=== PATIENT | female | born 1990 ===

== ENCOUNTER → 2021-12-19 11:32 | Outpatient (BNVA) | payer MEDICAID, SELFPAY | PROVIDERS: PCP Hospitalist; Visit Provider Advanced Practice Midwife ==

== ENCOUNTER 2022-08-19 10:02 | Outpatient (REF) | payer MEDICAID, SELFPAY ==
[2022-08-19 19:04] LABS: CT PCR NOT DETECTED (Not Detect.); NG PCR NOT DETECTED (Not Detect.)
[2022-08-20 09:34] LABS: BV Int Neg Control Negative (Negative); BV Int Pos Control Positive (Positive)
[2022-08-25 20:52] LABS: HPV mRNA E6/E7 rflx Not Detected (Not Detected)
== END 2022-08-19 10:03 | disposition home or self-care (01) ==
LOC: HO.LNP 10:02
PROVIDERS: Visit Provider Advanced Practice Midwife
DX: Z01.419 Encounter for gynecological examination (general) (routine) without abnormal findings (principal); Z11.3 Encounter for screening for infections with a predominantly sexual mode of transmission; Z11.51 Encounter for screening for human papillomavirus (HPV)
CPT/HCPCS: 87480; 87491; 87510; 87591; 87624; 87660; 88142

== ENCOUNTER 2023-06-28 14:36 | Outpatient (REF) | payer MEDICAID, SELFPAY ==
--- NOTE | ~2023-06-28 | US_ITS ---
EXAMINATION: US VENOUS ULTRASOUND WITH DOPPLER LOWER EXTREMITY, BILATERAL CLINICAL INFORMATION: Swelling and edema. COMPARISON: None available. TECHNIQUE: Ultrasound of the deep veins is performed from the bilateral hips to the calf, with compression sonography and color and pulse Doppler assessment. Spectral analysis with color-flow imaging is performed. FINDINGS: RIGHT: There is normal venous compression and respiratory variation and augmented flow. The visualized common femoral vein, superficial femoral vein, profunda femoral vein, popliteal vein, and the trifurcation region shows no evidence of deep venous thrombosis. There is no significant popliteal fossa cyst. LEFT: There is normal venous compression and respiratory variation and augmented flow. The visualized common femoral vein, superficial femoral vein, profunda femoral vein, popliteal vein, and the trifurcation region shows no evidence of deep venous thrombosis. There is no significant popliteal fossa cyst. If the patient's symptoms persist, followup ultrasound in 5 days 7 days might be of value to exclude proximal propagation from a non-visualized calf vein. US/US venous duplex LE BI IMPRESSION: No DVT demonstrated in the bilateral lower extremities.
== END 2023-06-28 14:37 | disposition home or self-care (01) ==
LOC: HO.US 14:36
PROVIDERS: Visit Provider Hospitalist
DX: R22.43 Localized swelling, mass and lump, lower limb, bilateral (principal)
CPT/HCPCS: 93970

== ENCOUNTER 2023-08-26 09:27 | Outpatient (AMB) | payer MEDICAID, SELFPAY ==
--- NOTE | 2023-08-26 09:33 | MHC.OFFVIS ---
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 [facility] staff member Viviana is present for her visit. She reports irregular menstrual cycle. She reports abnormal weight gain ~ about 30 lbs. since last visit. She performs physical therapy exercises. She is interested in having a future and that she did have a boyfriend. No history of blood clot in legs or lungs. She is taking thyroid medication. She is up-to-date with pap smear. Denies vaginal itching and irritation. She was never diagnosed with polycystic syndrome. No excessive hair growth or acne. Denies any lower abdominal pain or pelvic pain. 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 Family History (Updated 08/26/23 @ 11:12 by Feliciano Jacob) Sister ALS (amyotrophic lateral sclerosis) Father ALS (amyotrophic lateral sclerosis) Social History Housing: Assisted Living Facility Housing Other:: hospital unit care one Female Reproductive History Menstrual Total pregnancies: 1 Full term: 1 Number of Living Children: 1 Date of last pap smear: 08/19/22 (neg pap and hpv) Review of Systems Const All systems reviewed & are unremarkable except as noted in HPI and below Reports as per HPI Eyes Reports no additional complaints ENT Reports no additional complaints Card Reports no additional complaints Resp Reports no additional complaints GI Reports no additional complaints Reports as per HPI Musc Reports no additional complaints Skin/Breast Reports as per HPI Neuro Reports no additional complaints Psych Reports no additional complaints Endo Reports no additional complaints Steven/Lymph Reports no additional complaints Aller/Immun Reports no additional complaints Physical Exam Vital Signs: Last Vital Signs BP 120/80 08/26/23 09:37 BMI result Body Mass Index 37.4 Const General: cooperative, healthy appearing, no acute distress, well developed and alert Orientation/consciousness: patient oriented x3 HEENT Head: Yes normal to inspection Eyes General: appearance normal, both eyes and all related structures Neck Neck: Yes normal visual inspection Thyroid: Thyroid normal Chest Chest palpation & inspection: normal inspection of the chest Breast/axilla inspection: normal inspection of the breasts (no puckering, dimpling, peau de orange, retraction, discharge, masses) Breast/axilla palpation: normal palpation of the breasts Resp Effort & Inspection: normal respiratory effort GI Inspection: Yes normal to inspection and Yes obesity Palpation (GI): Soft to palpation and Other GI palpation findings present (large, rounded) Rectal Exam - Female: deferred Other: limited due to body habitus General: Yes bladder normal to palpation External Female Exam: normal external appearance and normal appearance of the urethra Speculum Exam - Vagina: normal appearance of the vagina, normal palpation and normal vaginal discharge Speculum Exam - Cervix: normal appearance of the cervix and normal palpation Bimanual exam- vagina & uterus: normal bimanual exam, normal palpation, uterine size normal, bladder normal to palpation and normal palpation Bimanual Exam- Adnexa, other: normal adnexae and no masses Skin General skin exam: no rashes or lesions noted Neuro General: patient oriented x3 Cognition (Neuro): normal cognition Extrem General: Yes normal to inspection Psych Attitude: cooperative Thought process: Normal thought process present Assessment & Plan Assessment & Plan (1) Encounter for annual routine gynecological examination: Code(s): Z01.419 - Encounter for gynecological examination (general) (routine) without abnormal findings Plan: Discussed: Current recommendations for pap smears per ASCCP guidelines. Breast awareness and periodic self breast exams. Maintaining a healthy lifestyle including a well balanced diet and routine exercise. Advised to avoid high-calorie diet. Recommended a follow-up with pan pusher at [facility] and to continue with chair exercises, and PT. All of her questions and concerns were addressed to the best of my ability. RTO in one year for AG. (2) Irregular menses: Code(s): N92.6 - Irregular menstruation, unspecified Plan: Prescribed Provera 10 mg QD PO for five days. Ordered an US of pelvis and transvaginal RTO 2 wks for results in person. She is agreeable to the plan of care. (3) Weight gain: Code(s): R63.5 - Abnormal weight gain Plan: Maintaining a healthy lifestyle including a well balanced diet and routine exercise. Advised to avoid high-calorie diet. Recommended a follow-up with pan pusher. Orders: Orders Thyroid Stimulating Hormone Today N92.6 - Irregular menstruation, unspecified, R63.5 - Abnormal weight gain 17 Hydroxyprogesterone Today N92.6 - Irregular menstruation, unspecified DHEA Sulfate Today N92.6 - Irregular menstruation, unspecified HCG Quantitative Today N92.6 - Irregular menstruation, unspecified Bacterial Vaginosis Panel Today N92.6 - Irregular menstruation, unspecified US pelvic and transvaginal Today N92.6 - Irregular menstruation, unspecified, R63.5 - Abnormal weight gain Follicle Stimulating Hormone Today N92.6 - Irregular menstruation, unspecified Prolactin Today N92.6 - Irregular menstruation, unspecified CT NG by PCR Today N92.6 - Irregular menstruation, unspecified Medications: New medroxyprogesterone (Provera) 10 mg PO DAILY 5 tabs 0RF 5 days Coding Level of Care Code Est Pt Prev Care 18-39y(03569) Diagnoses Encounter for annual routine gynecological examination Z01.419 Irregular menses N92.6 Weight gain R63.5
[2023-08-26 09:37] VITALS: BP 120/80; BMI 37.4
== END 2023-08-26 10:25 | disposition home or self-care (01) ==
LOC: HO.HWS 09:27
PROVIDERS: PCP Hospitalist; Visit Provider Advanced Practice Midwife
DX: Z01.419 Encounter for gynecological examination (general) (routine) without abnormal findings (principal); N92.6 Irregular menstruation, unspecified; R63.5 Abnormal weight gain
CPT/HCPCS: 99395

== ENCOUNTER 2023-08-26 09:27 | Outpatient (REF) | payer MEDICAID, SELFPAY ==
[2023-08-26 13:01] LABS: HCG Quantitative < 2 mIU/mL; Thyroid Stimulating Hormone 0.67 uIU/mL (0.32-4.0)
[2023-08-26 16:44] LABS: CT PCR NOT DETECTED (Not Detect.); NG PCR NOT DETECTED (Not Detect.)
[2023-08-27 13:12] LABS: BV Int Neg Control Negative (Negative); BV Int Pos Control Positive (Positive)
[2023-08-27 23:09] LABS: DHEA Sulfate 126 mcg/dL (19-237)
[2023-08-28 07:33] LABS: Follicle Stimulating Hormone 7.3 mIU/mL
== END 2023-08-26 09:28 | disposition home or self-care (01) ==
LOC: HO.LAB 09:27
PROVIDERS: PCP Hospitalist; Visit Provider Advanced Practice Midwife
DX: Z01.419 Encounter for gynecological examination (general) (routine) without abnormal findings (principal); N92.6 Irregular menstruation, unspecified; R63.5 Abnormal weight gain
CPT/HCPCS: 0353U; 82627; 83001; 83498; 84146; 84443; 84702; 87480; 87510; 87660; 99395

== ENCOUNTER 2023-08-26 10:27 | Outpatient (REF) | payer MEDICAID, SELFPAY | END 2023-08-26 10:28 | disposition home or self-care (01) | LOC: HO.LNP 10:27 | PROVIDERS: Visit Provider Advanced Practice Midwife | DX: Z13.89 Encounter for screening for other disorder (principal) ==

== ENCOUNTER 2023-10-12 12:48 | Outpatient (REF) | payer MEDICAID, SELFPAY | END 2023-10-12 12:49 | disposition home or self-care (01) | LOC: HO.US 12:48 | PROVIDERS: PCP Hospitalist; Visit Provider Advanced Practice Midwife | DX: N92.6 Irregular menstruation, unspecified (principal); R63.5 Abnormal weight gain | CPT/HCPCS: 76830; 76856 ==

== ENCOUNTER 2023-11-04 10:17 | Outpatient (AMB) | payer MEDICAID, SELFPAY ==
--- NOTE | 2023-11-04 10:18 | MHC.OFFVIS ---
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 It did reveal that she has a right ovarian cyst it appears to be simple but views were limited in looked like it was a bit asymmetrical in the ovary. She reports no menses since her last visit, she denies any risk to . She denies any pelvic pain. She admits to gaining a lot of weight. She reports using the wheelchair now for 2 months to get around, she is having trouble weight-bearing on her ankles due to the swelling. Reviewed some of her food intake it appears to be average. Previous lab work was reviewed today it was all normal including the thyroid level. 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 Family History (Updated 08/26/23 @ 11:12 by Feliciano Jacob) Sister ALS (amyotrophic lateral sclerosis) Father ALS (amyotrophic lateral sclerosis) Social History Housing: Assisted Living Facility Housing Other:: hospital unit care one Female Reproductive History Menstrual Date of last menstrual period: 10/29/23 Review of Systems Const All systems reviewed & are unremarkable except as noted in HPI and below Reports as per HPI Eyes Reports no additional complaints ENT Reports no additional complaints Card Reports no additional complaints Resp Reports no additional complaints GI Reports as per HPI and Reports no additional complaints Reports as per HPI Musc Reports no additional complaints Skin/Breast Reports as per HPI Neuro Reports no additional complaints Psych Reports no additional complaints Endo Reports no additional complaints Steven/Lymph Reports no additional complaints Aller/Immun Reports no additional complaints Physical Exam Vital Signs: Last Vital Signs BP 122/80 11/04/23 10:19 Const General: cooperative, healthy appearing, no acute distress, well developed and alert Other: Patient declines a pelvic exam today, and is not having any pelvic pain. Neuro Cognition (Neuro): normal cognition Psych Appearance: well kempt Attitude: cooperative Thought process: Normal thought process present Results Reviewed Results Reviewed: [address] [address] Ultrasound Report Signed Patient: Sveta Segundo MR#: [id number] : 1990 Acct:[id number] Age/Sex: 32 / F ADM Date: 10/12/23 Loc: HO.US Attending Dr: Susan Roach CNM Ordering Physician: Susan Roach CNM Date of Service: 10/12/23 Procedure(s): US pelvic and transvaginal Accession Number(s): [id number] cc: Susan Roach CNM; Jamir Davila DO~ EXAMINATION: US PELVIS CLINICAL INFORMATION: Irregular menstruation. COMPARISON: CT chest, abdomen and pelvis 06/26/2017. TECHNIQUE: Ultrasound of the pelvis performed using transabdominal approach. Patient couldn't tolerate the transvaginal examination. FINDINGS: Limited transabdominal examination secondary to body habitus and shadowing from bowel gas. The uterus is anteverted measuring 7.1 x 3.7 x 4.9 cm. No uterine mass. The endometrium measures approximately 0.5 cm in thickness without discrete focal abnormality. Suboptimal visualization of the ovaries in this transabdominal examination. The right ovary measures approximately 3.3 x 4.2 x 3.6 cm, 26 mL and the left ovary measures approximately 1.7 x 2.1 x 2.2 cm, 4.1 mL. There is a 2.9 x 2.9 x 3.2 cm simple appearing unilocular, well-defined, avascular cyst in the right ovary with no septations and no associated solid component. There is preserved flow to both ovaries on color Doppler at the moment of this examination. No free fluid. US/US pelvic and transvaginal IMPRESSION: Limited transabdominal examination. 1. The endometrium measures approximately 0.5 cm in thickness which is within normal limits for a patient of this age. 2. There is a 3.2 cm simple appearing cyst in the right ovary which is almost certainly benign in a patient of this age. However, given the limitations of this examination, a follow-up ultrasound in 6-12 weeks is recommended to ensure resolution. 3. The right ovary is asymmetrically enlarged compared to the left, most likely explained by the presence of the 3.2 cm cyst. No significant edematous stromal changes are identified, and there is preserved color flow at the moment of this examination to the right ovary, however torsion/detorsion or partial torsion cannot be entirely excluded in this examination for which clinical correlation is indicated. Dictated By: Megan Araiza Signed By: <Electronically signed by Megan Araiza in OV> 10/21/23 1631 DD/ 1308 TD/TT: Bicycle Technician: Assessment & Plan Assessment & Plan (1) Ovarian cyst: Code(s): N83.209 - Unspecified ovarian cyst, unspecified side Qualifiers: Laterality: right Qualified Code(s): N83.201 - Unspecified ovarian cyst, right side (2) Amenorrhea: Code(s): N91.2 - Amenorrhea, unspecified (3) Excessive weight gain: Code(s): R63.5 - Abnormal weight gain Plan Discussed: Ultrasound findings the right ovarian cyst appears simple but rate it all a just had a limited view in due to the asymmetry of the ovary plan is to repeat the ultrasound between 6-12 weeks. Advised if there is any pelvic pain on the right side to notify the office as soon as possible for a sooner evaluation. Reviewed amenorrhea concerns with anovulatory cycles and the need to use Provera intermittently if not sexually active to protect the endometrium. Weight gain, affect on menstrual cycling due to hormone levels. Strongly encouraged to start exercising and moving around more, to work with her PT team and her primary care. Consider support hose as needed. Encouraged chair exercises for the time being. Rx for Provera sent in advised to call if she does not experience a withdrawal bleed within 7 days. Ultrasound ordered informed to make a follow-up appointment to discuss the results and to discuss a plan of care for her intermittent progesterone. All of her questions and concerns were addressed to the best of my ability and shared decision making. She is agreeable to the plan of care. This note is constructed using voice recognition software. While every effort has been made to ensure accuracy, window tinter errors may have been included. Orders: Orders US pelvic and transvaginal 10 Weeks N83.209 - Unspecified ovarian cyst, unspecified side Medications: Refilled medroxyprogesterone (Provera) 10 mg PO DAILY 5 days 5 tabs 0RF Coding Level of Care Code Est Pt Level 3 (10934) Diagnoses Cyst of right ovary N83.201 Laterality: right Amenorrhea N91.2 Excessive weight gain R63.5
[2023-11-04 10:19] VITALS: BP 122/80
== END 2023-11-04 11:05 | disposition home or self-care (01) ==
LOC: HO.HWS 10:17
PROVIDERS: PCP Hospitalist; Visit Provider Advanced Practice Midwife
DX: N83.201 Unspecified ovarian cyst, right side (principal); N91.2 Amenorrhea, unspecified; R63.5 Abnormal weight gain
CPT/HCPCS: 99213

== ENCOUNTER → 2023-11-04 10:17 | Outpatient (BNVA) | payer MEDICAID, SELFPAY | PROVIDERS: PCP Hospitalist; Visit Provider Advanced Practice Midwife | DX: N83.201 Unspecified ovarian cyst, right side (principal); N91.2 Amenorrhea, unspecified; R63.5 Abnormal weight gain | CPT/HCPCS: 99212 ==

== ENCOUNTER 2024-01-13 11:17 | Outpatient (REF) | payer MEDICAID, SELFPAY ==
--- NOTE | ~2024-01-13 | US_ITS ---
EXAMINATION: US PELVIS CLINICAL INFORMATION: Cyst of ovary, unsure of last menstrual period, possibly beginning of December. COMPARISON: Pelvic ultrasound of 10/12/2023. TECHNIQUE: Transabdominal ultrasound images of the pelvis. Patient declined transvaginal ultrasound. Limited visualization due to bowel gas and body habitus. FINDINGS: The uterus measures 7.0 x 2.8 x 4.6 cm. No discrete fibroids are identified, although visualization is limited. Endometrium is poorly visualized. Possible segment of endometrium demonstrates thickness of 3 mm, but measurement is unreliable. Left ovary not visualized. Right ovary measures 3.4 x 2.2 x 2.5 cm, volume 9.9 mL. Previously identified right ovarian cyst not visualized today. Limited visualization of the right ovary. US/US pelvic complete IMPRESSION: 1. Previously identified right ovarian cyst not visualized today. Limited visualization of the right ovary. 2. Left ovary not visualized. 3. Endometrium poorly visualized. Possible segment of endometrium demonstrates thickness of 3 mm, but measurement is unreliable. 4. Limited visualization due to bowel gas and body habitus. Patient declined transvaginal ultrasound. 5. Transvaginal ultrasound recommended for better visualization.
== END 2024-01-13 11:18 | disposition home or self-care (01) ==
LOC: HO.US 11:17
PROVIDERS: PCP Hospitalist; Visit Provider Advanced Practice Midwife
DX: N83.209 Unspecified ovarian cyst, unspecified side (principal)
CPT/HCPCS: 76856

== ENCOUNTER 2024-01-27 09:51 | Outpatient (AMB) | payer MEDICAID, SELFPAY ==
--- NOTE | 2024-01-27 10:13 | A.OFFVIS_ITS ---
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 Accompanied by her care 1 pier master assistant, Randee Landa. She admits that she has gained a 100 lb since being at [facility]. Exercise is limited. She reports withdrawal bleed from the use of a progesterone last month. She has no other concerns. She denies any risk for . 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 Family History (Updated 08/26/23 @ 11:12 by Feliciano Jacob) Sister ALS (amyotrophic lateral sclerosis) Father ALS (amyotrophic lateral sclerosis) Social History Housing: Assisted Living Facility Housing Other:: hospital unit care one Review of Systems Const All systems reviewed & are unremarkable except as noted in HPI and below Endo Reports no additional complaints Physical Exam Vital Signs: Last Vital Signs BP 110/76 01/27/24 10:15 BMI result Body Mass Index 37.4 Const General: cooperative, healthy appearing and no acute distress Psych Appearance: well kempt Attitude: cooperative Thought process: Normal thought process present Results Reviewed Results Reviewed: [address] [address] Ultrasound Report Signed Patient: Sveta Segundo MR#: [id number] : 1990 Acct:[id number] Age/Sex: 33 / F ADM Date: 01/13/24 Loc: HO.US Attending Dr: Susan Roach CNM Ordering Physician: Susan Roach CNM Date of Service: 01/13/24 Procedure(s): US pelvic complete Accession Number(s): [id number] cc: Cm Roachbobby ARVIZU; Jamir Davila DO~ EXAMINATION: US PELVIS CLINICAL INFORMATION: Cyst of ovary, unsure of last menstrual period, possibly beginning of December. COMPARISON: Pelvic ultrasound of 10/12/2023. TECHNIQUE: Transabdominal ultrasound images of the pelvis. Patient declined transvaginal ultrasound. Limited visualization due to bowel gas and body habitus. FINDINGS: The uterus measures 7.0 x 2.8 x 4.6 cm. No discrete fibroids are identified, although visualization is limited. Endometrium is poorly visualized. Possible segment of endometrium demonstrates thickness of 3 mm, but measurement is unreliable. Left ovary not visualized. Right ovary measures 3.4 x 2.2 x 2.5 cm, volume 9.9 mL. Previously identified right ovarian cyst not visualized today. Limited visualization of the right ovary. US/US pelvic complete IMPRESSION: 1. Previously identified right ovarian cyst not visualized today. Limited visualization of the right ovary. 2. Left ovary not visualized. 3. Endometrium poorly visualized. Possible segment of endometrium demonstrates thickness of 3 mm, but measurement is unreliable. 4. Limited visualization due to bowel gas and body habitus. Patient declined transvaginal ultrasound. 5. Transvaginal ultrasound recommended for better visualization. Dictated By: Donna Morales MD Signed By: <Electronically signed by Donna Morales MD in OV> 01/19/24 0517 DD/ 1158 TD/TT: Auditing Control Clerk: Assessment & Plan Assessment & Plan (1) Encounter to discuss test results: Code(s): Z71.2 - Person consulting for explanation of examination or test findings (2) Amenorrhea: Code(s): N91.2 - Amenorrhea, unspecified Plan Discussed: Ultrasound findings are normal with limitations in imaging as defined in the report. Labs reviewed from prior visit were normal. Weight gain can be a contributing factor for her menstrual cycling. Discussed the importance use of cycling more regularly and will continue use progesterone until she loses the adequate amount of weight and cycles spontaneously on her own. Plan will be to proceed with progesterone at least every other month if she does not cycle, r efills to be sent in. Next visit is scheduled for August 2024 for annual and a follow up on her menstrual cycle and medication will be discussed at that visit. Encouraged her to work with her primary care on her weight loss plan. Advised to call sooner if any concerns. All of her questions and concerns were addressed to the best of my ability and shared decision making. She is agreeable to the plan of care. This note is constructed using voice recognition software. While every effort has been made to ensure accuracy, artificial plastic eye maker errors may have been included. Coding Level of Care Code Est Pt Level 3 (39985) Diagnoses Encounter to discuss test results Z71.2 Amenorrhea N91.2
[2024-01-27 10:15] VITALS: BP 110/76; BMI 37.4
== END 2024-01-27 10:48 | disposition home or self-care (01) ==
PROVIDERS: PCP Hospitalist; Visit Provider Advanced Practice Midwife
DX: Z71.2 Person consulting for explanation of examination or test findings (principal); N91.2 Amenorrhea, unspecified
CPT/HCPCS: 99213

== ENCOUNTER → 2024-01-27 09:51 | Outpatient (BNVA) | payer MEDICAID, SELFPAY | PROVIDERS: PCP Hospitalist; Visit Provider Advanced Practice Midwife | DX: N91.2 Amenorrhea, unspecified (principal); Z71.2 Person consulting for explanation of examination or test findings | CPT/HCPCS: 99212 ==

== ENCOUNTER 2024-07-21 10:39 | Outpatient (AMB) | payer MEDICAID, SELFPAY ==
--- NOTE | 2024-07-21 10:41 | A.OFFVIS_ITS ---
Intake Visit Reasons: Follow up medication Horse Racing Manager: Horse Racing Manager Present Allergies No Known Allergies Allergy (Verified 07/21/24 10:41) Is last menstrual period known: Yes Last menstrual period: 06/07/24 HPI Comments Details: Patient is here for a follow up due to her history of amenorrhea, presents with her FOCUSED FACTORY MANAGER, Randee. She admitted she had gained 100 lb since she was at [facility] over the last 8 years. History of head trauma is wheelchair-bound, admits the food at [facility] isn't as healthy as she would like. History of constipation. She reports a withdrawal bleed with the use of Provera. She has not at risk for , no sexual contact. She admits to occasional cramping, no other symptoms or concerns. 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 Family History (Updated 08/26/23 @ 11:12 by Feliciano Jacob) Sister ALS (amyotrophic lateral sclerosis) Father ALS (amyotrophic lateral sclerosis) Social History Housing: Assisted Living Facility Housing Other:: hospital unit care one Female Reproductive History Menstrual Date of last menstrual period: 06/07/24 Review of Systems Const All systems reviewed & are unremarkable except as noted in HPI and below Endo Reports no additional complaints Physical Exam Const General: cooperative, healthy appearing and no acute distress Psych Appearance: well kempt Attitude: cooperative Thought process: Normal thought process present Assessment & Plan Assessment & Plan (1) Irregular menses: Code(s): N92.6 - Irregular menstruation, unspecified Plan Discuss plan of care, continue intermittent progesterone to protect the endometrium from developing hyperplasia, atypia or any changes that can lead to uterine cancer. She prefers to have cycles monthly, refills sent in until August when she is back for her annual exam. Advised to focus on a healthy diet when possible provided the food is available, an example choosing to eat from the salad bar, hydrating well, continue with physical therapy to keep extremity strong with good range of motion. All of her questions and concerns were addressed to the best of my ability and shared decision making. She is agreeable to the plan of care. This note is constructed using voice recognition software. While every effort has been made to ensure accuracy, net c developer errors may have been included. Medications: Refilled medroxyprogesterone (Provera) 10 mg PO DAILY 5 tabs 2RF 5 days Coding Level of Care Code Est Pt Level 3 (20373) Diagnoses Irregular menses N92.6
== END 2024-07-21 12:42 | disposition home or self-care (01) ==
LOC: HO.HWSW 10:39
PROVIDERS: PCP Hospitalist; Visit Provider Advanced Practice Midwife
DX: N92.6 Irregular menstruation, unspecified (principal)
CPT/HCPCS: 99213

== ENCOUNTER → 2024-07-21 10:39 | Outpatient (BNVA) | payer MEDICAID, SELFPAY | PROVIDERS: PCP Hospitalist; Visit Provider Advanced Practice Midwife | DX: N92.6 Irregular menstruation, unspecified (principal); Z99.3 Dependence on wheelchair | CPT/HCPCS: 99212 ==

== ENCOUNTER 2024-08-31 09:51 | Outpatient (AMB) | payer MEDICAID, SELFPAY ==
--- NOTE | 2024-08-31 10:01 | A.OFFVIS_ITS ---
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: No Accompanied by: Handicapped Dependent Allergies No Known Allergies Allergy (Verified 08/31/24 10:08) Medication List - Last Reconciled 08/31/24 by Renee Rice LPN acetaminophen (Tylenol) 650 mg PO Q6H PRN atorvastatin (Lipitor) 10 mg PO DAILY baclofen 10 mg PO TID bisacodyl 10 mg LA DAILY PRN clozapine (Clozaril) 25 mg PO DAILY clozapine (Clozaril) 50 mg PO BID lactulose 10 grams PO BEDTIME levothyroxine (Synthroid) 50 mcg PO DAILY medroxyprogesterone (Provera) 10 mg PO DAILY 5 days mirtazapine 15 mg PO DAILY sertraline 100 mg PO DAILY thiamine HCl (vitamin B1) 100 mg PO DAILY Is last menstrual period known: Yes Last menstrual period: 08/29/24 Post menopausal: No Patient : No HPI Comments Details: She is a premenopausal woman presenting for annual examination, accompanied by [facility] staff member, Viviana. Doing well with no concerns. Uses Provera for withdrawal bleed. Currently is not sexually active in over 10 years. She denies vaginal itching and irritation. She tries to eat healthy, does not ambulate, uses a wheelchair. Denies family history of breast, ovarian or colon cancer. Last pap smear 2020, negative. 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 Family History Sister ALS (amyotrophic lateral sclerosis) Father ALS (amyotrophic lateral sclerosis) Social History Housing: Assisted Living Facility Housing Other:: hospital unit care one Female Reproductive History Menstrual Duration of menses: <3 days Date of last menstrual period: 08/29/24 Date of last pap smear: 09/09/22 (normal) History of abnormal pap smear: No History of STI: No Review of Systems Const All systems reviewed & are unremarkable except as noted in HPI and below Reports as per HPI Eyes Reports no additional complaints ENT Reports no additional complaints Card Reports no additional complaints Resp Reports no additional complaints GI Reports as per HPI and Reports no additional complaints Reports as per HPI Musc Reports no additional complaints Skin/Breast Reports as per HPI Neuro Reports no additional complaints Psych Reports no additional complaints Endo Reports no additional complaints Steven/Lymph Reports no additional complaints Aller/Immun Reports no additional complaints Physical Exam Vital Signs: Last Vital Signs BP 126/82 08/31/24 10:04 Const General: cooperative, healthy appearing, no acute distress, well developed and alert Orientation/consciousness: patient oriented x3 HEENT Head: Yes normal to inspection Eyes General: appearance normal, both eyes and all related structures Neck Neck: Yes normal visual inspection Thyroid: Thyroid normal Chest Chest palpation & inspection: normal inspection of the chest and other (no puckering, dimpling, peau de orange, retraction, discharge, masses) Breast/axilla inspection: normal inspection of the breasts Breast/axilla palpation: normal palpation of the breasts Resp Effort & Inspection: normal respiratory effort GI Inspection: Yes normal to inspection Palpation (GI): Soft to palpation Rectal Exam - Female: deferred General: Yes bladder normal to palpation External Female Exam: normal external appearance and normal appearance of the urethra Speculum Exam - Vagina: normal appearance of the vagina, normal palpation, normal vaginal discharge and vaginal bleeding Speculum Exam - Cervix: normal appearance of the cervix and normal palpation Bimanual exam- vagina & uterus: normal bimanual exam, normal palpation, uterine size normal, bladder normal to palpation, normal palpation and non-tender Bimanual Exam- Adnexa, other: no masses OB/external & speculum: vaginal bleeding Skin General skin exam: no rashes or lesions noted Rashes: no rashes Neuro General: patient oriented x3 Cognition (Neuro): normal cognition Extrem General: Yes normal to inspection Psych Attitude: cooperative Thought process: Normal thought process present Assessment & Plan Assessment & Plan (1) Encounter for annual routine gynecological examination: Code(s): Z01.419 - Encounter for gynecological examination (general) (routine) without abnormal findings Category: Medical Plan Discussed: Current recommendations for pap smears per ASCCP guidelines. Breast awareness. Maintain a healthy lifestyle including a well balanced diet. Patient verbalizes understanding and agrees to the plan of care for medication use and the role of Provera with the anovulatory cycles. She prefers to have a monthly cycle so medication Rx will be increased to have on hand throughout the year. Call if there is any irregular bleeding patterns. She was given opportunity to ask questions and all questions were answered to the best of my ability. 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 This note is constructed using voice recognition software. While every effort has been made to ensure accuracy, electronic prepress technician errors may have been included. Medications: Changed From medroxyprogesterone (Provera) 10 mg PO DAILY 5 days 5 tabs 2RF To medroxyprogesterone (Provera) take monthly for five days, repeat every 30d. 10 mg PO DAILY 72 tabs 0RF 5 days Coding Level of Care Code Est Pt Prev Care 18-39y(75002) Diagnoses Encounter for annual routine gynecological examination Z01.419
[2024-08-31 10:04] VITALS: BP 126/82
== END 2024-08-31 10:42 | disposition home or self-care (01) ==
LOC: HO.HWS 09:51
PROVIDERS: PCP Hospitalist; Visit Provider Advanced Practice Midwife
DX: Z01.419 Encounter for gynecological examination (general) (routine) without abnormal findings (principal)
CPT/HCPCS: 99395

== ENCOUNTER → 2024-08-31 09:51 | Outpatient (BNVA) | payer MEDICAID, SELFPAY | PROVIDERS: PCP Hospitalist; Visit Provider Advanced Practice Midwife | DX: Z01.419 Encounter for gynecological examination (general) (routine) without abnormal findings (principal) | CPT/HCPCS: 99395 ==